=== PATIENT | female | born 1980 | race Caucasian/White ===

== ENCOUNTER 2019-04-18 07:54 | Emergency (ER) | payer MEDICARE, MEDICAID ==
[2019-04-18] MEDS ORDERED: CETIRIZINE 10 MG TABLET PO ONE (09:04)
[2019-04-18] MEDS ORDERED: PSEUDOEPHEDRINE HCL 30 MG TABLET PO ONE (09:04)
--- NOTE | 2019-04-18 09:04 | ER Document Report ---
HPI - HPI Patient complains to provider of: Decreased hearing to left ear Time Seen by Provider: 04/18/19 08:46 Onset: Yesterday Onset/Duration: Gradual Quality of pain: No pain Pain Level: Denies Context: Patient states that yesterday she felt a ringing in her ear and a friend put an earwax solution in her ear and then irrigated the solution out. Patient reports decreased hearing to the left ear since then. Patient is extremely anxious about the status of her hearing. Patient states that both ears initially had decreased hearing although the right ear has now returned to normal. Patient denies any fever drainage from the ear. Patient denies any recent exposure to loud noises. Associated Symptoms: Other - Decreased hearing to left ear Exacerbated by: Denies Relieved by: Denies Similar symptoms previously: No Recently seen / treated by doctor: No - ROS ROS below otherwise negative: Yes Systems Reviewed and Negative: Yes All other systems reviewed and negative - EENT EENT: DENIES: Sore Throat. Comment Only: Ear Pain - loss of hearing - NEURO Neurology: DENIES: Headache - RESPIRATORY Respiratory: DENIES: Coughing - GASTROINTESTINAL Gastrointestinal: DENIES: Nausea, Patient vomiting - REPRODUCTIVE Reproductive: DENIES: : - DERM Skin Color: Normal Skin Problems: None Past Medical History - General Information source: Patient - Social History Smoking Status: Never Smoker Frequency of alcohol use: None Drug Abuse: None Occupation: None Lives with: Family Family History: Reviewed & Not Pertinent Patient has suicidal ideation: No Patient has homicidal ideation: No Neurological Medical History: Reports: Hx Migraine Musculoskeletal Medical History: Reports Hx Arthritis Psychiatric Medical History: Reports: Hx Anxiety, Hx Attention Deficit Hyperactivity Disorder Past Surgical History: Reports: Hx Section - Immunizations Hx Diphtheria, Pertussis, Tetanus Vaccination: Yes Vertical Provider Document - CONSTITUTIONAL Agree With Documented VS: Yes Exam Limitations: No Limitations General Appearance: WD/WN, No Apparent Distress - INFECTION CONTROL TRAVEL OUTSIDE OF THE [place] IN LAST 30 DAYS: No - HEENT HEENT: Atraumatic, Normocephalic Notes: Minimal serous effusion on the left, normal left TM, no pain with movement of helix bilaterally. Patient with normal hearing to right ear to spoken word and gentle rubbing of fingers near the right ear. Course - Re-evaluation Re-evalutation: 04/18/19 09:30 Patient with normal right ear and has impaired conductive hearing to the left ear. Patient's sensorineural hearing intact bilaterally - Vital Signs Vital signs: Temp Pulse Resp BP Pulse Ox 97.8 F 98 18 126/82 H 98 04/18/19 07:59 04/18/19 07:59 04/18/19 07:59 04/18/19 07:59 04/18/19 07:59 Discharge - Discharge Clinical Impression: Eustachian tube dysfunction Qualifiers: Laterality: left Qualified Code(s): H69.82 - Other specified disorders of Eustachian tube, left ear Condition: Stable Disposition: HOME, SELF-CARE Additional Instructions: Return immediately for any new or worsening symptoms Followup with your primary care provider, call tomorrow to make a followup appointment Follow-up with an power electronics research engineer. Your primary doctor can give you the referral for this appointment. Take Sudafed [id number] as directed to help with congestion symptoms Prescriptions: Cetirizine HCl [Zyrtec] 10 mg PO DAILY #30 capsule Referrals: PRICILLA MARTIN PA-C [Primary Care Provider] - Follow up as needed
[2019-04-18 09:46] VITALS: BP 113/78
== END 2019-04-18 09:53 | disposition home or self-care (01) ==
LOC: ER 07:54
DX: H69.92 Unspecified Eustachian tube disorder, left ear (principal); H90.2 Conductive hearing loss, unspecified
CPT/HCPCS: 99282; A9270 ×2

== ENCOUNTER 2019-10-17 18:33 | Emergency (ER) | payer MEDICARE, MEDICAID ==
[2019-10-17 18:44] VITALS: BP 144/76
--- NOTE | 2019-10-17 19:08 | ER Document Report ---
ED Medical Screen (RME) - General Chief Complaint: Vomiting Stated Complaint: ABDOMINAL PAIN,VOMITING,FEVER Time Seen by Provider: 10/17/19 19:06 Primary Care Provider: PRICILLA MARTIN PA-C [Primary Care Provider] - Follow up as needed Mode of Arrival: Ambulatory Information source: Patient Notes: 39-year-old female presents to ED for complaint of upper abdominal pain nausea and vomiting over 24 hours. She states she is on Adderall and oxycodone for chronic pain and she has not had a bowel movement in several days. She states she thinks she is constipated. She states she goes to the bathroom an hour she does not sweat and vomits. She states she did go to the store to get about 2 medicines to take but she still is just having sweating and vomiting. She will need a complete assessment done. Of ordered blood urine and acute abdomen series. I have greeted and performed a rapid initial assessment of this patient. A comprehensive ED assessment and evaluation of the patient, analysis of test results and completion of medical decision making process will be conducted by an additional ED providers. TRAVEL OUTSIDE OF THE [place] IN LAST 30 DAYS: No - Related Data Allergies/Adverse Reactions: No Known Allergies Allergy (Verified 04/18/19 08:05) Past Medical History Neurological Medical History: Reports: Hx Migraine Musculoskeltal Medical History: Reports Hx Arthritis Psychiatric Medical History: Reports: Hx Anxiety, Hx Attention Deficit Hyperactivity Disorder Past Surgical History: Reports: Hx Section - Immunizations Hx Diphtheria, Pertussis, Tetanus Vaccination: Yes Physical Exam - Vital signs Vitals: Temp Pulse Resp BP Pulse Ox 98.4 F 75 18 144/76 H 99 10/17/19 18:41 10/17/19 18:41 10/17/19 18:41 10/17/19 18:41 10/17/19 18:41 Course - Vital Signs Vital signs: Temp Pulse Resp BP Pulse Ox 98.4 F 75 18 144/76 H 99 10/17/19 18:41 10/17/19 18:41 10/17/19 18:41 10/17/19 18:41 10/17/19 18:41 Doctor's Discharge - Discharge Referrals: PRICILLA MARTIN PA-C [Primary Care Provider] - Follow up as needed
== END 2019-10-17 19:10 | disposition left against medical advice (07) ==
LOC: ER 18:33
DX: R11.2 Nausea with vomiting, unspecified (principal); R10.10 Upper abdominal pain, unspecified; R61 Generalized hyperhidrosis; R19.4 Change in bowel habit; F90.9 Attention-deficit hyperactivity disorder, unspecified type; G89.29 Other chronic pain; Z79.891 Long term (current) use of opiate analgesic; Z79.899 Other long term (current) drug therapy; Z53.20 Procedure and treatment not carried out because of patient's decision for unspecified reasons
CPT/HCPCS: 99281